=== PATIENT | female | born 1930 | race Caucasian/White ===

== ENCOUNTER → 2016-10-26 | Outpatient (CLI) | payer MEDICARE, BC ==
[~2016-10-26] MED LIST: ALPRAZOLAM0.5 M3 PO; ASPIRIN 81MG TA81 MG PO; BACTRIM DS 8001 TAB PO; CARVEDILOL3.125 MG PO; COREG6.25 MG PO; DETROL 1MG TAB1 MG PO; FLAGYL500 MG PO; FLEXERIL10 MG PO; FUROSEMIDE20 MG PO; GABAPENTIN300 MG PO; LASIX20 MG PO; LEVAQUIN250 M1 PO; LEVOTHYROXIN0.075 MG PO; LORATADINE 10MG10 M1 PO; LYRICA150 MG PO; MELOXICAM7.5 MG PO; METHYLPRED DP4 MG PO; METRONIDAZOLE250 MG PO; NEURONTIN 100100 MG OR; NEURONTIN 300M300 MG PO; OMNICEF 300 MG300 MG PO; PANTOPRAZOLE SO40 MG PO; PREDNISONE 10MG10 MG PO; PREDNISONE 20MG20 MG PO; PREDNISONE20 MG PO; PROTONIX 40MG T40 MG PO; RISPERDAL 0.20.25 MG PO; RISPERDAL 0.50.5 MG PO; SAVELLA12.5 MG PO; TAMIFLU 75MG CA75 MG PO; TIZANIDINE HCL 44 MG PO; TYLENOL WITH CO1 TA1 PO; VIMOVO 20 MG-501 TCP PO; XANAX1 M1 PO; Xanax0.25 MG PO
[2016-10-26 16:11] LABS: HEMOGLOBIN 12.3 g/dL (12.2-16.2); LYMPH # 1.7 K/mm3 (0.7-4.5); LYMPH % 24.7 % (10-50.0)
[2016-10-26 16:15] LABS: BUN 17 mg/dL (7-18)
[2016-10-26 16:17] LABS: GFR (ESTIMATED) 47 ML/MIN (59-)
--- NOTE | 2016-10-26 16:24 | RADIOLOGY REPORT PS360 ---
CHEST(2 VIEWS-NOT PORTABLE) HISTORY: SOB, HTN ORDERING PHYSICIAN: Lizbet Foreman APRN PATIENT AGE: 86 years COMPARISON: 05/01/2016 FINDINGS: There is mild cardiomegaly which may be accentuated by the pectus excavatum deformity. No evidence of CHF. No lobar consolidation or collapse. Prominent pericardial fat-pad is present on the right. There is evidence of old granulomatous disease. A nodularity is present in the right upper lobe. This area measures approximately 10 mm. Developing pulmonary nodule is a consideration. Chest CT may be of further value. Chronic changes are once again noted in the left lung base. No acute bony anomalies. IMPRESSION: 1. Mild cardiomegaly. 2. Pectus excavatum with chronic changes in the left lung base and right pericardial fat pad. 3. Ill-defined nodular opacity right upper lobe. Developing pulmonary nodule is a consideration. Chest CT may be of further value..
== END ==
LOC: LAB 15:13
PROVIDERS: Nurse Practitioner Family
DX: I10 Essential (primary) hypertension (principal); R06.02 Shortness of breath; R53.1 Weakness; F32.1 Major depressive disorder, single episode, moderate